=== PATIENT | female | born 1950 | race Two or more races ===

== ENCOUNTER 2023-01-07 11:48 | Emergency (ER) | payer OTHER ==
[~2023-01-07] VITALS: Ht 175.3 cm; Wt 86.3 kg
[2023-01-07] MEDS ORDERED: AZITHROMYCIN 500MG/ 250ML 250 ML IV ONE (12:15)
[2023-01-07] MEDS ORDERED: REMDESIVIR PER PHARMACY 0 ML IV SCH (12:15)
[2023-01-07] MEDS ORDERED: methylPREDNISolone SOD SUCC 125 MG/2 ML VL IV ONE (12:15)
[2023-01-07 13:29] LABS: Basophils # (auto) 0 10 ^3/uL (0-0.2); Basophils % (auto) 0.4 % (0.0-2.0); Eosinophils # (auto) 0.4 10 ^3/uL (0-0.8); Hemoglobin 9.5 g/dL (12.2-16.2); Lymphocytes # (auto) 0.4 10 ^3/uL (0.4-5.4); Mean Corpuscular Volume 72.7 fL (80.0-100.0); Monocytes # (auto) 0.3 10 ^3/uL (0-1.3); White Blood Cell 8.4 10^3/uL (4.4-10.8)
[2023-01-07 13:30] VITALS: PULSE 87; RESP 16; O2SAT 97
[2023-01-07 13:30] LABS: Eosinophils % (auto) 5.2 % (0.0-7.0); Lymphocytes % (auto) 4.8 % (10.0-50.0); Mean Corpuscular Hemoglobin 23.1 pg (28.0-32.0); Mean Corpuscular Hgb Conc. 31.8 g/dL (32.0-36.0); Monocytes % (auto) 3.3 % (0.0-12.0); Neutrophils # (auto) 7.2 10 ^3/uL (1.6-8.6); Neutrophils % (auto) 86.3 % (37.0-80.0); Nucleated Red Blood Cells % 0.1 %; Red Blood Cells 4.12 10^6/uL (4.0-5.20)
[2023-01-07 14:25] LABS: COVID19 ANTIGEN SOFIA FIA NEGATIVE (NEGATIVE)
[2023-01-07 14:28] LABS: Albumin 4.1 g/dL (3.2-4.8); Alkaline Phosphatase 103 U/L (46-116); Anion Gap 5 (5-15); Aspartate Aminotransferase 14 U/L (13-40); BUN/Creatinine Ratio 8.2 (10.0-20.0); Bilirubin, Total 0.3 mg/dL (0.2-1.0); Blood Urea Nitrogen 8 mg/dL (9-23); Calcium 8.5 mg/dL (8.7-10.4); Carbon Dioxide 25 mmol/L (20-30); Chloride 103 mmol/L (98-107); Glucose 192 mg/dL (74-106); Magnesium 1.6 mg/dL (1.6-2.6); Potassium 4.4 mmol/L (3.5-5.1); Sodium 133 mmol/L (136-145); Total Protein 6.7 g/dL (5.7-8.2)
[2023-01-07 14:30] LABS: Rapid Influenza A Negative (Negative); Rapid Influenza B Negative (Negative)
[2023-01-07 14:31] LABS: Alanine Aminotransferase < 9 U/L (7-40)
[2023-01-07] MEDS ORDERED: IOHEXOL 350 MG/ML 100ML IJ ONE ×2 (14:54→20:52)
[2023-01-07] MEDS ORDERED: ACETAMINOPHEN 325 MG TAB PO ONE (17:30)
[2023-01-07 17:48] LABS: Urine Bacteria NONE SEEN /hpf (None Seen); Urine Blood TRACE /uL (Negative); Urine Clarity Clear (Clear); Urine Color Colorless (Yellow); Urine Protein, UAD Negative (Negative); Urine Specific Gravity 1.049 (1.001-1.035); Urine Urobilinogen Normal (Negative); Urine WBC 2 /hpf (0 - 5)
[2023-01-07] MEDS ORDERED: HYDROcodone-ACET 10/325MG TAB PO ONE (18:15)
[2023-01-07 19:47] VITALS: BP 111/52; PULSE 80; RESP 18; TEMP 98.1; O2SAT 98
== END 2023-01-07 21:10 | disposition short-term general hospital (02) ==
LOC: ER 11:48 → EDBD 11:48 → ER 21:10
DX: J96.00 Acute respiratory failure, unspecified whether with hypoxia or hypercapnia (principal); C79.9 Secondary malignant neoplasm of unspecified site; I10 Essential (primary) hypertension; E11.9 Type 2 diabetes mellitus without complications; E03.9 Hypothyroidism, unspecified; E78.5 Hyperlipidemia, unspecified; Z90.49 Acquired absence of other specified parts of digestive tract; Z90.710 Acquired absence of both cervix and uterus; Z20.822 Contact with and (suspected) exposure to COVID-19
CPT/HCPCS: 36415; 71045; 71275; 80053; 81001; 83605; 83735; 83880; 85025; 85379; 87040; 87426; 87804; 93005; 96365; 96366; 96375; 99291; J0456; J2930; Q9967

== ENCOUNTER 2023-06-29 22:27 | Emergency (ER) | payer OTHER ==
[~2023-06-29] VITALS: Ht 162.6 cm; Wt 68.0 kg
[2023-06-29] MEDS: ALBUMIN 25% 100 ML IV ONE (23:09)
[2023-06-29] MEDS: SODIUM CHLORIDE 0.9% 1,000 ML IV ONE (23:10)
[2023-06-29 23:19] LABS: Basophils # (auto) 0.1 10 ^3/uL (0-0.2); Basophils % (auto) 0.6 % (0.0-2.0); Eosinophils # (auto) 0.6 10 ^3/uL (0-0.8); Eosinophils % (auto) 4.7 % (0.0-7.0); Hematocrit 31.5 % (36.0-46.0); Lymphocytes # (auto) 1.9 10 ^3/uL (0.4-5.4); Lymphocytes % (auto) 14.3 % (10.0-50.0); Mean Corpuscular Hemoglobin 27.2 pg (28.0-32.0); Mean Corpuscular Hgb Conc. 31.8 g/dL (32.0-36.0); Mean Corpuscular Volume 85.6 fL (80.0-100.0); Monocytes # (auto) 1.1 10 ^3/uL (0-1.3); Monocytes % (auto) 8.2 % (0.0-12.0); Neutrophils # (auto) 9.6 10 ^3/uL (1.6-8.6); Neutrophils % (auto) 72.2 % (37.0-80.0); Red Blood Cells 3.68 10^6/uL (4.0-5.20); Red Cell Distribution Width 19.7 % (11.8-14.3); White Blood Cell 13.2 10^3/uL (4.4-10.8)
[2023-06-29 23:25] VITALS: PULSE 64; RESP 19; O2SAT 97
[2023-06-29 23:39] LABS: Alanine Aminotransferase 23 U/L (7-40); Albumin 3.3 g/dL (3.2-4.8); Alkaline Phosphatase 265 U/L (46-116); Anion Gap 8 (5-15); Aspartate Aminotransferase 44 U/L (13-40); BUN/Creatinine Ratio 7.6 (10.0-20.0); Bilirubin, Total 0.2 mg/dL (0.2-1.0); Blood Urea Nitrogen 25 mg/dL (9-23); Calcium 8.6 mg/dL (8.7-10.4); Carbon Dioxide 25 mmol/L (20-30); Chloride 101 mmol/L (98-107); Glucose 203 mg/dL (74-106); Potassium 4.4 mmol/L (3.5-5.1); Sodium 134 mmol/L (136-145); Total Protein 6.3 g/dL (5.7-8.2)
[2023-06-30 02:00] VITALS: BP 102/40; PULSE 67; RESP 21; TEMP 98.4; O2SAT 97
== END 2023-06-30 02:05 | disposition home or self-care (01) ==
LOC: ER 22:27 → EDBD 22:27 → ER 06-30 02:05
DX: R53.1 Weakness (principal); I10 Essential (primary) hypertension; E11.9 Type 2 diabetes mellitus without complications; E03.9 Hypothyroidism, unspecified; R07.89 Other chest pain; Z90.49 Acquired absence of other specified parts of digestive tract; Z90.710 Acquired absence of both cervix and uterus
CPT/HCPCS: 36415; 71045; 80053; 83880; 84484; 85025; 85379; 93005; 96365; 99285; J7030; P9047

== ENCOUNTER 2024-01-05 14:57 | Emergency (ER) | payer OTHER ==
[~2024-01-05] VITALS: Ht 157.5 cm; Wt 70.0 kg
[~2024-01-05 14:57] MED LIST: DIPH2.5T73 PO; INSU100I2 SC; LOPE2CAP PO; ONDA-155 PO
--- NOTE | 2024-01-05 15:13 | ED.PDOC ---
GI ASSESSMENT HPI Comments 73y F who presents to the ED via EMS for chief complaint of abdominal pain. Per EMS, pt family called after they noticed pt has been having fever, chills, and states they noticed irregular fluid coming from ileostomy tube. Pt has history of cancer and has ileostomy tube placed and states she is having pain around tube site. Pt states she is having epigastric abdominal pain, rating the pain 5/10, constant, with no associated exacerbating or relieving factors. Pt otherwise has nausea and vomiting but denies any other symptoms. Pt otherwise has PICC in L arm and states she gets IV fluids as she commonly gets dehydrated. Pt otherwise denies any other symptoms at this time. Chief Complaint: Abdominal Pain Time Seen by MD: 15:09 Reviewed Notes: Nurses Notes, Rd Project Manager Notes, Medications, Allergies Allergies: Coded Allergies: Aspirin (Verified Allergy, Unknown, 11/05/23) patient states they broke out in rash Codeine (Verified Allergy, Unknown, 11/05/23) patient states they broke out in rash Oxycodone (Verified Allergy, Unknown, 11/05/23) patient states they broke out in rash Home Meds Reported Medications Ondansetron HCl (Ondansetron) 4 Mg Tab, 4 MG PO Q6HPRN, TAB 08/17/23 Insulin Lispro (Human) (Humalog) 100 Unit/Ml Inj, 2 UNIT SC PRN, INJ 08/17/23 Loperamide Hcl (Loperamide Hcl) 2 Mg Cap, 2 MG PO TID, MG 08/17/23 Diphenoxylate W/ Atropine (Lomotil) 2.5 Mg Tab, 2.5 MG PO QID, TAB 08/17/23 Information Source: Patient Mode of Arrival: EMS Brought in by: EMS Timing: Hours, Days Duration: Since onset Prehospital treatment: None Quality: Aching Vomitus: Firm Stool: Normal Severity: Moderate Recent: None Recent Hx of: None Pain Location: Epigastric Modifying Factors: Nothing Associated sign and symptoms: Nausea, Vomiting, Abdominal Pain Past Medical History PAST MEDICAL HISTORY: Cancer, DM, High Lipids, HTN, Thyroid Surgical History: Appendectomy, Cholecystectomy, Hysterectomy, Tonsillectomy VEGETABLE GROWER History: No Pertinent VEGETABLE GROWER History Family History Family History: Family hx of Cancer Social History Smoker: Non-Smoker Alcohol: Denies ETOH Use Drugs: Denies Drug Use Lives In: Home Constitutional: reports: chills, weakness; denies: diaphoresis, fatigue, fever, malaise, sweats, others EENTM: denies: blurred vision, double vision, ear bleeding, ear discharge, ear drainage, ear pain, ear ringing, eye pain, eye redness, hearing loss, mouth pain, mouth swelling, nasal discharge, nose bleeding, nose congestion, nose pain, photophobia, tearing, throat pain, throat swelling, voice changes, others Respiratory: denies: cough, hemoptysis, orthopnea, SOB at rest, shortness of breath, SOB with excertion, stridor, wheezing, others Cardiovascular: denies: chest pain, dizzy spells, diaphoresis, Dyspnea on exertion, edema, irregular heart beat, left arm pain, lightheadedness, palpitations, PND, syncope, others Gastrointestinal: reports: abdominal pain, nausea, vomiting; denies: abdomen distended, blood streaked bowels, constipated, diarrhea, dysphagia, difficulty swallowing, hematemesis, melena, poor appetite, poor fluid intake, rectal bleeding, rectal pain, others Genitourinary: denies: abnormal vagina bleeding, burning, dyspareunia, dysuria, flank pain, frequency, hematuria, incontinence, pain, , vagina discharge, urgency, others Neurological: denies: dizziness, fainting, headache, left sided numbness, left sided weakness, numbness, paresthesia, pre-existing deficit, right sided numbness, right sided weakness, seizure, speech problems, tingling, tremors, weakness, others Musculoskeletal: denies: back pain, gout, joint pain, joint swelling, muscle pain, muscle stiffness, neck pain, others Integumetry: denies: bruises, change in color, change in hair/nails, dryness, laceration, lesions, lumps, rash, wounds, others Allergic/Immunocompromised: denies: Difficulty Healing, Frequent Infections, Hives, Itching, others Hematologic/Lymphatic: denies: anemia, blood clots, easy bleeding, easy bruising, swollen glands, others Endocrine: denies: excessive hunger, excessive sweating, excessive thirst, excessive urination, flushing, intolerance to cold, intolerance to heat, unexplained weight gain, unexplained weight loss, others Psychiatric: denies: anxiety, bipolar disorder, depression, hopeless, panic disorder, schizophrenia, sleepless, suicidal, others All Other Systems: Reviewed and Negative Physical Exam General Appearance: Moderate Distress HEENT: Normal ENT Inspection, Pharynx Normal, TMs Normal Neck: Full Range of Motion, Non-Tender, Normal, Normal Inspection Respiratory: Chest Non-Tender, Lungs Clear, No Accessory Muscle Use, No Respiratory Distress, Normal Breath Sounds Cardiovascular: No Edema, No JVD, No Murmur, No Gallop, Normal Peripheral Pulses, Regular Rate/Rhythm Breast Exam: Deferred Gastrointestinal: Diffuse, No Organomegaly, No Pulsatile Mass, Normal Bowel Sounds, Soft, Tenderness Genitalia: Deferred Pelvic: Deferred Rectal: Deferred Extremities: No calf tenderness, Normal capillary refill, No pedal edema Musculoskeletal : Apperance: Normal Neurologic: Alert, countersinker balance screw hole II-XII nml as Tested, No Motor Deficits, Normal Affect, Normal Mood, No Sensory Deficits Cerebellar Function: Normal Reflexes: Normal Skin: Dry, Normal Color, Warm Lymphatic: No Adenopathy Was a procedure done? Was a procedure done?: No GI differential Dx Differential Diagnosis: Gastritis/PUD, Gastroenteritis, UTI, Electrolyte Imbalance Other Differential Diagnosis cellulitis, sepsis, ileostomy site care, X-Ray, Labs, Meds, VS Vital Signs Date Time Temp Pulse Resp B/P (MAP) Pulse Ox O2 Delivery O2 Flow Rate FiO2 01/05/24 15:03 98.9 86 22 163/90 (114) 97 Lab Test 01/05/24 15:11 Range/Units White Blood Count 12.1 H 4.4-10.8 10^3/uL Red Blood Count 4.55 4.0-5.20 10^6/uL Hemoglobin 12.5 12.2-16.2 g/dL Hematocrit 38.0 36.0-46.0 % Mean Corpuscular Volume 83.6 80.0-100.0 fL Mean Corpuscular Hemoglobin 27.6 L 28.0-32.0 pg Mean Corpuscular Hemoglobin Concent 33.0 32.0-36.0 g/dL Red Cell Distribution Width 15.2 H 11.8-14.3 % Platelet Count 343 140-450 10^3/uL Mean Platelet Volume 7.3 6.9-10.8 fL Neutrophils (%) (Auto) 81.7 H 37.0-80.0 % Lymphocytes (%) (Auto) 9.4 L 10.0-50.0 % Monocytes (%) (Auto) 4.2 0.0-12.0 % Eosinophils (%) (Auto) 4.0 0.0-7.0 % Basophils (%) (Auto) 0.7 0.0-2.0 % Neutrophils # (Auto) 9.9 H 1.6-8.6 10 ^3/uL Lymphocytes # (Auto) 1.1 0.4-5.4 10 ^3/uL Monocytes # (Auto) 0.5 0-1.3 10 ^3/uL Eosinophils # (Auto) 0.5 0-0.8 10 ^3/uL Basophils # (Auto) 0.1 0-0.2 10 ^3/uL Nucleated Red Blood Cells 0.1 % Sodium Level 139 136-145 mmol/L Potassium Level 4.0 3.5-5.1 mmol/L Chloride Level 103 98-107 mmol/L Carbon Dioxide Level 28 20-31 mmol/L Anion Gap 8 5-15 Blood Urea Nitrogen 9 9-23 mg/dL Creatinine 0.86 0.550-1.02 mg/dL Glomerular Filtration Rate Calc 70 >90 mL/min BUN/Creatinine Ratio 10.5 10.0-20.0 Serum Glucose 219 H 74-106 mg/dL Calcium Level 9.7 8.7-10.4 mg/dL Total Bilirubin 0.5 0.2-1.0 mg/dL Aspartate Amino Transferase (AST) 51 H 13-40 U/L Alanine Aminotransferase (ALT) 21 7-40 U/L Alkaline Phosphatase 169 H 46-116 U/L Total Protein 6.7 5.7-8.2 g/dL Albumin 4.2 3.2-4.8 g/dL Lipase 102 H 12-53 U/L CT scan of the abdomen and pelvis shows: Impression: 1. Limited evaluation given noncontrast technique. 2. No definite acute abdominopelvic abnormalities. 3. No obstruction. 4. Scattered bibasilar nodular opacities may reflect an infectious/inflammatory etiology versus pulmonary nodules. 5. Other non-acute, ancillary findings as described above. The CBC shows an elevated white blood cell count of 12.1 The rest of the CBC is within normal limits serum The patient's chemistry panel is within normal limits The lipase level is elevated The patient was being admitted at this time. Images Reviewed?: Images reviewed and evaluated by me Time of 1ST Reevaluation: 15:40 Reevaluation 1ST: Unchanged Patient Education/Counseling: Diagnosis, Treatment, Prognosis Family Education/Counseling: No Family Present Departure 1 Departure Time of Disposition: 16:22 Impression: Primary Impression: Intractable abdominal pain Additional Impression: Elevated lipase Disposition: ADMITTED INPATIENT Admit to: Med Surg Condition: Fair Critical Care Note Critical Care Time?: No Stability Stability form required: Yes Unstable for transfer: ED Physician Assesment (Clinical assesment) Heart Score Heart Score: Heart Score Response (Comments) Value History N/A 0 EKG N/A 0 Age N/A 0 Risk Factors N/A 0 Troponin N/A 0 Total 0 I personally scribed for JOSE OLIVEIRA MD ([email or web address]) on 01/05/24 at 15:13. Electronically submitted by Calni Larson ([email or web address]). JOSE OLIVEIRA MD Jan 05, 2024 15:13
[2024-01-05 15:27] LABS: Basophils # (auto) 0.1 10 ^3/uL (0-0.2); Basophils % (auto) 0.7 % (0.0-2.0); Eosinophils # (auto) 0.5 10 ^3/uL (0-0.8); Hemoglobin 12.5 g/dL (12.2-16.2); Lymphocytes # (auto) 1.1 10 ^3/uL (0.4-5.4); Lymphocytes % (auto) 9.4 % (10.0-50.0); Mean Corpuscular Hemoglobin 27.6 pg (28.0-32.0); Mean Corpuscular Volume 83.6 fL (80.0-100.0); Monocytes # (auto) 0.5 10 ^3/uL (0-1.3); Monocytes % (auto) 4.2 % (0.0-12.0); Neutrophils # (auto) 9.9 10 ^3/uL (1.6-8.6); Neutrophils % (auto) 81.7 % (37.0-80.0); Nucleated Red Blood Cells % 0.1 %; Platelet Count (auto) 343 10^3/uL (140-450); Red Blood Cells 4.55 10^6/uL (4.0-5.20); Red Cell Distribution Width 15.2 % (11.8-14.3); White Blood Cell 12.1 10^3/uL (4.4-10.8)
[2024-01-05 15:44] LABS: Alanine Aminotransferase 21 U/L (7-40); Albumin 4.2 g/dL (3.2-4.8); Alkaline Phosphatase 169 U/L (46-116); Anion Gap 8 (5-15); Aspartate Aminotransferase 51 U/L (13-40); BUN/Creatinine Ratio 10.5 (10.0-20.0); Blood Urea Nitrogen 9 mg/dL (9-23); Calcium 9.7 mg/dL (8.7-10.4); Carbon Dioxide 28 mmol/L (20-31); Chloride 103 mmol/L (98-107); Glucose 219 mg/dL (74-106); Lipase 102 U/L (12-53); Sodium 139 mmol/L (136-145)
[2024-01-05 15:45] LABS: Total Protein 6.7 g/dL (5.7-8.2)
[2024-01-05 15:47] LABS: Bilirubin, Total 0.5 mg/dL (0.2-1.0)
--- NOTE | 2024-01-05 16:18 | DVH ---
Exam: CT CT AB PEL WO CON-NO ORAL OR IV History: pain Comparison Study: None available TECHNIQUE: Multidetector CT of the abdomen and pelvis was performed from lung bases to pubic symphysi s. Imaging was performed without IV contrast. Axial, coronal, and sagittal multiplanar reformats were obtained from the axial data set by the technologist. RADIATION DOSE: DLP 391.51 mGy.cm; CTDI vol 7.4 mGy. Findings: Limited evaluation given noncontrast technique. Lungs: Scattered bibasilar nodular opacities. Small right pleural effusion. Heart: The visualized heart is unremarkable. No cardiomegaly or pericardial effusion. Liver: Unremarkable. Gallbladder: Cholecystectomy. Spleen: Unremarkable Pancreas: Unremarkable Adrenals: Unremarkable Kidneys: Unremarkable GI tract: Post surgical changes of the bowel. Left lower quadrant ostomy. : Unremarkable. Vasculature: Unremarkable Lymphadenopathy: Absent Peritoneum: No ascites Musculoskeletal: Unremarkable Soft tissues: Unremarkable Impression: 1. Limited evaluation given noncontrast technique. 2. No definite acute abdominopelvic abnormalities. 3. No obstruction. 4. Scattered bibasilar nodular opacities may reflect an infectious/inflammatory etiology versus pulmo nary nodules. 5. Other non-acute, ancillary findings as described above.
[2024-01-05] MEDS: MORPHINE SULFATE 4 MG/ML SYR/VIAL IV ONE (17:45)
[2024-01-05 19:30] VITALS: RESP 16; O2SAT 96
[2024-01-05] MEDS: ONDANSETRON HCL 4 MG/2 ML VIAL IV ONE (20:04)
[2024-01-05] MEDS: HYDROcodone-ACET 10/325MG TAB PO ONE (20:46)
[2024-01-05 21:35] VITALS: BP 160/70; PULSE 83; RESP 14; TEMP 97.7; O2SAT 98
== END 2024-01-05 22:00 | disposition admitted as inpatient to this hospital (09) ==
LOC: ER 14:57 → EDBD 14:57 → ER 22:00
DX: R10.13 Epigastric pain (principal); R74.8 Abnormal levels of other serum enzymes; E11.9 Type 2 diabetes mellitus without complications; E78.5 Hyperlipidemia, unspecified; I10 Essential (primary) hypertension; E03.9 Hypothyroidism, unspecified; Z79.899 Other long term (current) drug therapy; Z90.49 Acquired absence of other specified parts of digestive tract; Z90.710 Acquired absence of both cervix and uterus; Z98.890 Other specified postprocedural states
CPT/HCPCS: 36415; 74176; 80053; 83690; 85025; J2405

== ENCOUNTER 2024-03-24 18:40 | Emergency (ER) | payer OTHER ==
[~2024-03-24] VITALS: Ht 160 cm; Wt 68.3 kg
--- NOTE | 2024-03-24 19:04 | ED.PDOC ---
SOB-HPI HPI Comments 75 year old female brought in by EMS presents to the ED with a chief complaint of shortness of breath onset 3 days. Per EMS, patient began shortness of breath laying down, improved slightly when sitting up. Patient's O2 sat upon their arrival was 78% RA, breathing treatment was given, O2 sat improved to 98% and upon ED arrival dropped to 88% RA. Patient states she was sick with a cough about 3 weeks ago, symptoms improved and began experiencing shortness of breath 3 days ago, worsen today. PMHx liver cancer, colon cancer, lung cancer, DM, HTN, HLD, thyroid. Denies nausea, vomiting, diarrhea, chest pain, fever, congestion, headache. No other symptoms or modifying factors present at this time. Chief Complaint: Shortness of Breath Time Seen by MD: 18:44 Primary Care Provider: brionna Monsivais notes: Medications, Allergies Information Source: Patient, Emergency Med Personnel Mode of Arrival: EMS Severity: Moderate Timing: Days Duration: Since onset Context: At Rest PE Risk Factors: None History of: None Prehospital treatment: Breathing Tx Modifying Factors: Sitting up Associated Signs and Symptoms: Cough Radiation: No Radiation If cough with SOB: Non-Productive Past Medical History PAST MEDICAL HISTORY: Cancer, DM, High Lipids, HTN, Thyroid Surgical History: Appendectomy, Cholecystectomy, Hysterectomy, Tonsillectomy HEEL SEWER History: No Pertinent HEEL SEWER History Family History Family History: Family hx of Cancer Social History Smoker: Non-Smoker Alcohol: Denies ETOH Use Drugs: Denies Drug Use Lives In: Home Constitutional: denies: chills, diaphoresis, fatigue, fever, malaise, sweats, weakness, others EENTM: denies: blurred vision, double vision, ear bleeding, ear discharge, ear drainage, ear pain, ear ringing, eye pain, eye redness, hearing loss, mouth pain, mouth swelling, nasal discharge, nose bleeding, nose congestion, nose pain, photophobia, tearing, throat pain, throat swelling, voice changes, others Respiratory: reports: shortness of breath; denies: cough, hemoptysis, orthopnea, SOB at rest, SOB with excertion, stridor, wheezing, others Cardiovascular: denies: chest pain, dizzy spells, diaphoresis, Dyspnea on exertion, edema, irregular heart beat, left arm pain, lightheadedness, pal pitations, PND, syncope, others Gastrointestinal: denies: abdomen distended, abdominal pain, blood streaked bowels, constipated, diarrhea, dysphagia, difficulty swallowing, hematemesis, melena, nausea, poor appetite, poor fluid intake, rectal bleeding, rectal pain, vomiting, others Genitourinary: denies: abnormal vagina bleeding, burning, dyspareunia, dysuria, flank pain, frequency, hematuria, incontinence, pain, , vagina discharge, urgency, others Neurological: denies: dizziness, fainting, headache, left sided numbness, left sided weakness, numbness, paresthesia, pre-existing deficit, right sided numbness, right sided weakness, seizure, speech problems, tingling, tremors, weakness, others Musculoskeletal: denies: back pain, gout, joint pain, joint swelling, muscle pain, muscle stiffness, neck pain, others Integumetry: denies: bruises, change in color, change in hair/nails, dryness, laceration, lesions, lumps, rash, wounds, others Allergic/Immunocompromised: denies: Difficulty Healing, Frequent Infections, Hives, Itching, others Hematologic/Lymphatic: denies: anemia, blood clots, easy bleeding, easy b ruising, swollen glands, others Endocrine: denies: excessive hunger, excessive sweating, excessive thirst, excessive urination, flushing, intolerance to cold, intolerance to heat, unexplained weight gain, unexplained weight loss, others Psychiatric: denies: anxiety, bipolar disorder, depression, hopeless, panic disorder, schizophrenia, sleepless, suicidal, others All Other Systems: Reviewed and Negative Physical Exam General Appearance: No Apparent Distress HEENT: Other (Pupils and face symmetric, moist mucous membranes) Neck: Full Range of Motion, Normal Inspection Respiratory: Chest Non-Tender, Decreased Breath Sounds (On right), Wheezing (Left base), Other (Tachypneic) Cardiovascular: No Edema, No JVD, Regular Rate/Rhythm Breast Exam: Deferred Gastrointestinal: Non Tender, RUQ Genitalia: Deferred Pelvic: Deferred Rectal: Deferred Extremities: Normal inspection, Normal range of motion, Non-tender, No pedal edema Neurologic: Alert (Oriented x4), Normal Affect, Normal Mood, Other (Moves all extremities. No gross focal deficit.) Cerebellar Function: NOT DONE Reflexes: NOT DONE Skin: Dry, Normal Color, Warm Lymphatic: NOT DONE EKG EKG : Comments Sinus tach, rate 121, normal OR and QRS intervals, QTC 471, normal axis, right bundle branch block, nonspecific T changes. Was a procedure done? Was a procedure done?: No Differential Dx Differential Diagnosis: Asthma, Bronchitis, CHF, COPD, Myocardial infarction, Pneumonia, Pneumothorax, Pulmonary Embolism, Respiratory Distress, URI X-Ray, Labs, Meds, VS Vital Signs Date Time Temp Pulse Resp B/P (MAP) Pulse Ox O2 Delivery O2 Flow Rate FiO2 03/25/24 01:00 83 22 154/83 (106) 95 03/25/24 00:00 88 20 147/84 (105) 95 03/24/24 23:05 90 16 119/83 (95) 97 03/24/24 21:00 97.3 81 18 99/75 (83) 96 97.3 03/24/24 21:00 81 18 96 Nasal Cannula* 4 36 03/24/24 19:15 20 91 Nasal Cannula* 4 36 03/24/24 18:46 98.0 126 22 184/9 (67) 99 03/24/24 18:46 121 Lab Test 03/24/24 21:33 03/24/24 21:25 03/24/24 20:18 03/24/24 19:05 Range/Units Influenza Type A Antigen Negative Negative Influenza Type B Antigen Negative Negative SARS-CoV-2 Antigen (Rapid) Negative NEGATIVE Lactic Acid Level 1.7 2.6 *H 0.4-2.0 mmol/L Troponin I High Sensitivity 6 8 </=34 ng/L White Blood Count 13.6 H 4.4-10.8 10^3/uL Red Blood Count 4.83 4.0-5.20 10^6/uL Hemoglobin 12.7 12.2-16.2 g/dL Hematocrit 39.0 36.0-46.0 % Mean Corpuscular Volume 80.8 80.0-100.0 fL Mean Corpuscular Hemoglobin 26.3 L 28.0-32.0 pg Mean Corpuscular Hemoglobin Concent 32.6 32.0-36.0 g/dL Red Cell Distribution Width 13.2 11.8-14.3 % Platelet Count 352 140-450 10^3/uL Mean Platelet Volume 7.5 6.9-10.8 fL Neutrophils (%) (Auto) 59.2 37.0-80.0 % Lymphocytes (%) (Auto) 24.2 10.0-50.0 % Monocytes (%) (Auto) 5.3 0.0-12.0 % Eosinophils (%) (Auto) 10.5 H 0.0-7.0 % Basophils (%) (Auto) 0.8 0.0-2.0 % Neutrophils # (Auto) 8.0 1.6-8.6 10 ^3/uL Lymphocytes # (Auto) 3.3 0.4-5.4 10 ^3/uL Monocytes # (Auto) 0.7 0-1.3 10 ^3/uL Eosinophils # (Auto) 1.4 H 0-0.8 10 ^3/uL Basophils # (Auto) 0.1 0-0.2 10 ^3/uL Nucleated Red Blood Cells 0.0 % D-Dimer, Quantitative 1.95 H 0.0-0.49 mg/L FEU Sodium Level 138 136-145 mmol/L Potassium Level 3.3 L 3.5-5.1 mmol/L Chloride Level 106 98-107 mmol/L Carbon Dioxide Level 23 20-31 mmol/L Anion Gap 9 5-15 Blood Urea Nitrogen 6 L 9-23 mg/dL Creatinine 0.83 0.550-1.02 mg/dL Glomerular Filtration Rate Calc 73 >90 mL/min BUN/Creatinine Ratio 7.2 L 10.0-20.0 Serum Glucose 189 H 74-106 mg/dL Calcium Level 9.1 8.7-10.4 mg/dL B-Type Natriuretic Peptide 231.33 0-100 pg/mL Current Medications Medications (Trade) Dose Ordered Sig/Teresa Route Start Time Stop Time Status Last Admin Albuterol (Ventolin Medneb) 2.5 mg ONCE ONCE NEB 03/24/24 19:00 03/24/24 19:01 DC 03/24/24 19:16 Ipratropium Costa (Atrovent Medneb) 0.5 mg ONCE ONCE NEB 03/24/24 19:00 03/24/24 19:01 DC 03/24/24 19:16 Piperacillin Sod/ Tazobactam Sod 100 ml @ 100 mls/hr ONCE ONCE IV 03/24/24 21:00 03/24/24 21:59 DC 03/24/24 21:21 Vancomycin HCl 250 ml @ 250 mls/hr ONCE ONCE IV 03/24/24 21:00 03/24/24 21:59 DC 03/24/24 23:39 Acetaminophen/ Hydrocodone Bitart ([place] 5/325MG Tab) 1 tab ONCE ONCE PO 03/24/24 21:45 03/24/24 21:46 DC 03/24/24 21:58 Potassium Bicarbonate (Klor-Con/Ef) 50 meq ONCE ONCE PO 03/24/24 21:45 03/24/24 21:46 DC 03/24/24 21:58 PROCEDURE(s): CXRP - CHEST PORTABLE REASON: sob ORDER NUMBER(s): [id number], ACCESSION NUMBER(s): [id number] CHEST RADIOGRAPH Indication: sob Technique: Single frontal view of the chest was obtained COMPARISON: None FINDINGS: Lines and Tubes: Left PICC in satisfactory position. Lungs: Patchy right lung airspace disease. Pleura: Moderate right pleural effusion. No pneumothorax. Cardiomediastinal contours: Unremarkable Bones: Unremarkable IMPRESSION: Moderate right pleural effusion. EDURE(s): CTACH - CT ANGIO CHEST CONTRAST REASON: sob r/o pe ORDER NUMBER(s): [id number], ACCESSION NUMBER(s): [id number] INDICATION: sob r/o pe COMPARISON: None TECHNIQUE: Multidetector CTA of the chest was performed of the chest with 100 cc of intravenous contrast. PULMONARY ANGIOGRAPHY PROTOCOL was utilized using a bolus-tracking technique centered on the main pulmonary artery. Axial, coronal and sagittal multiplanar and MIP reformats were performed. Radiation Dose Information: CT Dose: CTDI volume is 14.72 mGy. Dose-length product is 507.7 mGy*cm The dose indicators for CT are the volume Computed Tomography (CT) Dose Index (CTDIvol) and the Dose Length Product (DLP), and are measured in units of mGy and mGy-cm, respectively. These indicators are not patient dose, but values generated from the CT scanner acquisition factors. The report includes radiation exposure data for exposures received during this examination. Findings: Pulmonary artery: Normal caliber of the pulmonary artery. No large central or large segmental pulmonary embolism. Lower neck: Normal thyroid. Lungs: Atelectasis in the right lower lung field with a large right pleural effusion. Small left pleural effusion Heart/Vascular Structures: Normal heart size. Normal caliber and enhancement of the aorta. Lymph Nodes: No adenopathy Pleura: Large right pleural effusion. Musculoskeletal: No acute osseous abnormality. Upper abdomen: Limited portions of the upper abdomen are unremarkable. Patient is status post cholecystectomy. IMPRESSION: 1. No pulmonary embolism. 2. No pulmonary artery hypertension. 3. Large right pleural effusion small left pleural effusion 4. Atelectasis right lower lung field. HS:Y HS:Y X-Ray, Labs, Meds, VS Comment 73-year-old female with a history of liver, colon and lung cancer brought in by EMS complaining of progressively worsening shortness a breath for the past 3 days, worse today. Patient found to be hypoxic in the high 70s on room air by EMS. Vitals remarkable for oxygen saturation 88% on room air, 91% on 4 L nasal cannula, heart rate 121, BP 184/90 Exam remarkable for diminished breath sounds on the right, wheezing at the left base Rhythm strip independently interpreted by me: Sinus tach, rate 121, no ectopy. Chest x-ray IMPRESSION: Moderate right pleural effusion. CT angio chest IMPRESSION: 1. No pulmonary embolism. 2. No pulmonary artery hypertension. 3. Large right pleural effusion small left pleural effusion 4. Atelectasis right lower lung field. CBC remarkable for WBC 13.6, metabolic panel remarkable for potassium 3.3, glucose 189 Lactate 2.6 BNP 231.33 Troponin negative Patient treated with the following in the ED: Albuterol 2.5 mg/Atrovent 0.5 mg nebulized, Zosyn 4.5 g IV, vancomycin 1 g IV Case discussed with Dr. Cobb at [facility], who will arrange for the patient to be transferred. Authorization [id number] Time of 1ST Reevaluation: 19:14 Reevaluation 1ST: Unchanged Patient Education/Counseling: Diagnosis, Treatment, Prognosis Family Education/Counseling: No Family Present Additional Information The following tests were ordered, and results were reviewed by me: TROP-x3, CBC, BNP, XY CHEST, UA, BNP, EKG, LA W/ REFLEX, BLOOD CULTURE, RAPID INFLUENZA A&B, COVID, D-DIMER I reviewed and agreed with the following test results read by other providers: XY CHEST Additional Information was gathered from interviewing the following independent historians: EMS I discussed treatment and results with medical personnel and: patient Sepsis Sepsis Reasesment Focused Exam Sepsis focused exam: focus exam completed (2100 capillary refill less than 2 seconds. BP normal. 30 cc/kilo fluid bolus not administered due to elevated BNP and large pleural effusion. Aggressive fluid hydration could cause harm), time: (2100) Departure 1 Departure Time of Disposition: 21:01 Impression: Primary Impression: Pleural effusion, right Additional Impression: Sepsis Qualified Codes: A41.9 - Sepsis, unspecified organism Disposition: 02 SHORT TERM HOSPITAL Admit to: Tele Condition: Guarded Critical Care Note Critical Care Time?: No Stability Stability form required: No Heart Score Heart Score: Heart Score Response (Comments) Value History N/A 0 EKG N/A 0 Age N/A 0 Risk Factors N/A 0 Troponin N/A 0 Total 0 I personally scribed for BENEDICT OCHOA MD ([email or web address]) on 03/24/24 at 19:04. Electronically submitted by Sophie Woody ([email or web address]). I personally scribed for BENEDICT OCHOA MD ([email or web address]) on 03/24/24 at 19:05. Electronically submitted by Sophie Woody ([email or web address]). I personally scribed for BENEDICT OCHOA MD ([email or web address]) on 03/24/24 at 20:18. Electronically submitted by Sophie Woody ([email or web address]). I personally scribed for BENEDICT OCHOA MD ([email or web address]) on 03/24/24 at 20:25. Electronically submitted by Sophie Wodoy ([email or web address]). BENEDICT OCHOA MD Mar 24, 2024 19:04
[2024-03-24] MEDS: IPRATROPIUM BROM 0.5 MG/2.5ML INH SOL NEB ONE (19:16)
[2024-03-24] MEDS: ALBUTEROL SULF 2.5 MG/0.5ML(0.5%) NEB SOLN NEB ONE (19:16)
[2024-03-24 19:19] LABS: Eosinophils # (auto) 1.4 10 ^3/uL (0-0.8); Lymphocytes # (auto) 3.3 10 ^3/uL (0.4-5.4); Monocytes # (auto) 0.7 10 ^3/uL (0-1.3)
[2024-03-24 19:20] LABS: Basophils # (auto) 0.1 10 ^3/uL (0-0.2); Basophils % (auto) 0.8 % (0.0-2.0); Eosinophils % (auto) 10.5 % (0.0-7.0); Hemoglobin 12.7 g/dL (12.2-16.2); Lymphocytes % (auto) 24.2 % (10.0-50.0); Mean Corpuscular Hemoglobin 26.3 pg (28.0-32.0); Mean Corpuscular Hgb Conc. 32.6 g/dL (32.0-36.0); Mean Corpuscular Volume 80.8 fL (80.0-100.0); Monocytes % (auto) 5.3 % (0.0-12.0); Neutrophils % (auto) 59.2 % (37.0-80.0); Platelet Count (auto) 352 10^3/uL (140-450); Red Blood Cells 4.83 10^6/uL (4.0-5.20); Red Cell Distribution Width 13.2 % (11.8-14.3); White Blood Cell 13.6 10^3/uL (4.4-10.8)
[2024-03-24 19:37] LABS: Chloride 106 mmol/L (98-107); Sodium 138 mmol/L (136-145)
[2024-03-24 19:38] LABS: Anion Gap 9 (5-15); Carbon Dioxide 23 mmol/L (20-31)
[2024-03-24 19:39] LABS: Calcium 9.1 mg/dL (8.7-10.4)
[2024-03-24 19:43] LABS: BUN/Creatinine Ratio 7.2 (10.0-20.0)
[2024-03-24 19:45] LABS: Blood Urea Nitrogen 6 mg/dL (9-23); Glucose 189 mg/dL (74-106); Potassium 3.3 mmol/L (3.5-5.1)
[2024-03-24 20:00] LABS: Lactic Acid w/Reflex 2.6 mmol/L (0.4-2.0)
--- NOTE | 2024-03-24 20:48 | DVH ---
CHEST RADIOGRAPH Indication: sob Technique: Single frontal view of the chest was obtained COMPARISON: None FINDINGS: Lines and Tubes: Left PICC in satisfactory position. Lungs: Patchy right lung airspace disease. Pleura: Moderate right pleural effusion. No pneumothorax. Cardiomediastinal contours: Unremarkable Bones: Unremarkable IMPRESSION: Moderate right pleural effusion.
[2024-03-24 21:00] VITALS: PULSE 81; RESP 18; O2SAT 96
[2024-03-24] MEDS: PIPERACILLIN-TAZO 4.5GM 100 ML IV ONE (21:21)
[2024-03-24] MEDS: IOHEXOL 350 MG/ML 100ML IJ ONE (21:26)
[2024-03-24] MEDS ORDERED: ONDANSETRON HCL 4 MG/2 ML VIAL IV ONE (21:30)
[2024-03-24] MEDS ORDERED: MORPHINE SULFATE 4 MG/ML SYR/VIAL IV ONE (21:30)
[2024-03-24] MEDS: HYDROcodone-ACET 5/325MG TAB PO ONE (21:58)
[2024-03-24] MEDS: POTASSIUM EFFERVESENT TAB 25 MEQ PO ONE (21:58)
--- NOTE | 2024-03-24 22:19 | DVH ---
INDICATION: sob r/o pe COMPARISON: None TECHNIQUE: Multidetector CTA of the chest was performed of the chest with 100 cc of intravenous contr ast. PULMONARY ANGIOGRAPHY PROTOCOL was utilized using a bolus-tracking technique centered on the hazel n pulmonary artery. Axial, coronal and sagittal multiplanar and MIP reformats were performed. Radiation Dose Information: CT Dose: CTDI volume is 14.72 mGy. Dose-length product is 507.7 mGy*cm The dose indicators for CT are the volume Computed Tomography (CT) Dose Index (CTDIvol) and the Dose Length Product (DLP), and are measured in units of mGy and mGy-cm, respectively. These indicators are not patient dose, but values generated from the CT scanner acquisition factors. The report includes radiation exposure data for exposures received during this examination. Findings: Pulmonary artery: Normal caliber of the pulmonary artery. No large central or large segmental pulmo nary embolism. Lower neck: Normal thyroid. Lungs: Atelectasis in the right lower lung field with a large right pleural effusion. Small left pleu ral effusion Heart/Vascular Structures: Normal heart size. Normal caliber and enhancement of the aorta. Lymph Nodes: No adenopathy Pleura: Large right pleural effusion. Musculoskeletal: No acute osseous abnormality. Upper abdomen: Limited portions of the upper abdomen are unremarkable. Patient is status post cholecy stectomy. IMPRESSION: 1. No pulmonary embolism. 2. No pulmonary artery hypertension. 3. Large right pleural effusion small left pleural effusion 4. Atelectasis right lower lung field. HS:Y HS:Y
[2024-03-24 22:29] LABS: COVID19 ANTIGEN SOFIA FIA NEGATIVE (NEGATIVE)
[2024-03-24 22:30] LABS: Rapid Influenza A Negative (Negative); Rapid Influenza B Negative (Negative)
[2024-03-24] MEDS: VANCOMYCIN 1GM/250ML KIT 250 ML IV ONE (23:39)
[2024-03-25 03:33] LABS: Urine Bacteria None Seen /hpf (None Seen)
[2024-03-25 03:34] VITALS: BP 163/87; PULSE 88; RESP 22; TEMP 97; O2SAT 95
[2024-03-25 03:45] LABS: Urine Blood Negative /uL (Negative); Urine Clarity Clear (Clear); Urine Color Yellow (Yellow); Urine Protein, UAD TRACE (Negative); Urine Squamous Epithelial Cell FEW /hpf (<5); Urine Urobilinogen Normal (Negative); Urine WBC 4 /HPF (0-5); Urine pH 5.5 (5.0-9.0)
--- NOTE | 2024-03-25 14:51 | ECG ---
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
== END 2024-03-25 03:40 | disposition short-term general hospital (02) ==
LOC: ER 18:40 → EDBD 18:40 → EDUNIT# 18:40 → ER 03-25 03:40
DX: A41.9 Sepsis, unspecified organism (principal); J90 Pleural effusion, not elsewhere classified; E11.9 Type 2 diabetes mellitus without complications; E78.5 Hyperlipidemia, unspecified; I10 Essential (primary) hypertension; Z90.49 Acquired absence of other specified parts of digestive tract; Z90.710 Acquired absence of both cervix and uterus; Z85.038 Personal history of other malignant neoplasm of large intestine; Z20.822 Contact with and (suspected) exposure to COVID-19
CPT/HCPCS: 36415; 71045; 71275; 80048; 81001; 83605; 83880; 84484; 85025; 85379; 87040; 87426; 87804; 93005; 94640; 96365; 96367; 99285; J2543; J3370; Q9967